=== PATIENT | female | born 2005 | race Caucasian/White ===

== ENCOUNTER 2024-02-11 08:51 | Inpatient (IN) ==
[2024-02-11] MEDS: Lactated Ringers 1000 ml BAG 1,000 ML IV ONE (10:07)
[2024-02-11] MEDS: Nalbuphine 10 MG/ML 1 ML VIAL IV PRN (10:07)
[2024-02-11 10:20] LABS: ABS Lymphocytes 1.6 10^3/uL (1.0-4.8); ABS Monocytes 0.9 10^3/uL (0.0-0.9); ABS Neutrophils 6.8 10^3/uL (1.5-7.6); Eosinophil % 0.5 %; Hematocrit 42.6 % (35-45); Hemoglobin 14.4 g/dL (11.5-14.3); Lymphocyte % 16.9 %; Mean Corpuscular Hemoglobin 32.7 pg (27-33); Mean Corpuscular Hgb Conc 33.8 g/dL (31-36); Mean Corpuscular Volume 96.7 fL (80-97); Mean Platelet Volume 10.9 fL (7.5-11.2); Platelet Count 182 10^3/uL (150-450); Red Blood Count 4.41 10^6/uL (3.63-4.92); Red Cell Distribution Width 13.2 % (12-17); White Blood Count 9.4 10^3/uL (3.8-11.8)
[2024-02-11] MEDS: Lactated Ringers 1000 ml BAG 1,000 ML IV SCH (10:58)
[2024-02-11 11:00] LABS: Albumin 3.8 g/dL (3.2-5.2); Albumin/Globulin Ratio 1.3 (1-3); Calcium 9.3 mg/dL (8.6-10.3); Creatinine, Serum 0.75 mg/dL (0.51-0.95); Globulin 2.9 g/dL (2-4); Total Bilirubin 0.6 mg/dL (0.2-1.0); Total Protein 6.7 g/dL (6.4-8.9); eGFR CKD-EPI 116.8 (>60)
[2024-02-11 11:31] LABS: Urine Benzodiazepine Screen None Detected (None Detect); Urine Opiates Screen None Detected (None Detect)
[2024-02-11] MEDS: Prochlorperazine 5 mg/ml 2 ml VIAL (10 mg) IV PRN (11:50)
[2024-02-11] MEDS: OBEPIDURAL (200 ML) 200 ML EPIDURAL ONE (13:29)
[2024-02-11] MEDS ORDERED: Sodium Citrate/Citric Acid LIQ 15 ML UDC PO PRN (13:40)
[2024-02-11] MEDS ORDERED: Phenylephrine 40 mcg/mL 10mL (400mcg) SYRINGE IV PUSH PRN (13:40)
[2024-02-11] MEDS: Phenylephrine 40 mcg/mL 10mL (400mcg) SYRINGE IV PUSH PRN (13:57)
[2024-02-11] MEDS: Oxytocin in LR 20,000 MILLI.UNIT/1,000 ML BAG IV SCH (14:28)
[2024-02-11] MEDS ORDERED: Phenylephrine IV 10 MG/ML 1 ml VIAL ONE (14:29)
[2024-02-11] MEDS ORDERED: Ondansetron 4 mg VIAL 2 MG/ML 2 ml VIAL ONE (14:29)
[2024-02-11] MEDS ORDERED: Lidocaine 2% PF 10 ML AMP (OR) ONE (14:29)
[2024-02-11] MEDS ORDERED: Glycerin ADULT 2.4 gm SUPP PR PRN (15:02)
[2024-02-11] MEDS: Witch Hazel PAD JAR TOPICAL PRN (15:53)
[2024-02-11] MEDS: Dibucaine 1% OINT 28.35 GM TUBE PR PRN (15:53)
[2024-02-11] MEDS ORDERED: Lactated Ringers 1000 ml BAG 1,000 ML IV SCH (16:00)
[2024-02-12 06:17] LABS: ABS Eosinophils 0.1 10^3/uL (0.0-0.5); ABS Lymphocytes 2.2 10^3/uL (1.0-4.8); ABS Neutrophils 8.9 10^3/uL (1.5-7.6); ABS Nucleated RBC 0.01 10^3/ul; Eosinophil % 0.5 %; Hematocrit 36.3 % (35-45); Hemoglobin 12.3 g/dL (11.5-14.3); Lymphocyte % 18.1 %; Mean Corpuscular Hemoglobin 32.6 pg (27-33); Mean Corpuscular Hgb Conc 33.8 g/dL (31-36); Mean Corpuscular Volume 96.5 fL (80-97); Mean Platelet Volume 10.6 fL (7.5-11.2); Nucleated Red Blood Cells % 0.1 %/100WBC (0.0-0.8); Platelet Count 175 10^3/uL (150-450); Red Blood Count 3.76 10^6/uL (3.63-4.92); Red Cell Distribution Width 13.2 % (12-17); White Blood Count 12.2 10^3/uL (3.8-11.8)
[2024-02-12] MEDS ORDERED: Lidocaine 1% VIAL 10 MG/ML 30 ML VIAL INJ PRN (17:14)
[2024-02-12] MEDS: Phenylephrine 40 mcg/mL 10mL (400mcg) SYRINGE ONE (19:29)
[2024-02-12] MEDS: Oxytocin in LR 20,000 MILLI.UNIT/1,000 ML BAG IV ONE (19:29)
[2024-02-12] MEDS: Lidocaine 1.5% EPI 1:200,000 30 ML SDV ONE (22:55)
[2024-02-12] MEDS: OBEPIDURAL (200 ML) 200 ML EPIDURAL SCH (22:56)
[2024-02-12] MEDS: Lactated Ringers 1000 ml BAG 1,000 ML IV ONE (22:56)
[2024-02-12] MEDS: Lactated Ringers 1000 ml BAG 1,000 ML IV SCH (22:56)
[2024-02-13 08:32] VITALS: BP 113/91
== END 2024-02-13 16:10 | disposition home or self-care (01) | DRG 560 ==
LOC: MCHOBOUT 08:51 → MCHOB 09:56
PROVIDERS: ADMIT Advanced Practice Midwife; ATTEND Advanced Practice Midwife